=== PATIENT | female | born 1965 | race Caucasian/White ===

== ENCOUNTER 2016-06-17 22:07 | Emergency (ER) | payer SELFPAY ==
[2016-06-17 22:13] VITALS: BP 147/74
[2016-06-17 23:18] LABS: Hematocrit 48.3 % (30.3-42.9); Hemoglobin 15.2 gm/dl (10.1-14.3); Mean Corpuscular HGB Conc 32 % (30-34); Mean Corpuscular Hemoglobin 30 pg (28-32); Mean Corpuscular Volume 94 fl (79-97); Red Blood Count 5.12 M/mm3 (3.65-5.03); Red Cell Distribution Width 13.2 % (13.2-15.2); White Blood Count 14.5 K/mm3 (4.5-11.0)
[2016-06-17 23:25] LABS: Alanine Aminotransferase 24 units/L (7-56); Albumin 4.2 g/dL (3.9-5); Albumin/Globulin Ratio 1.1 %; Alkaline Phosphatase 125 units/L (35-129); Anion Gap 29 mmol/L; BUN/Creatinine Ratio 26.66; Bilirubin,Total 0.5 mg/dL (0.1-1.2); Blood Urea Nitrogen 16 mg/dL (7-17); Calcium 9.7 mg/dL (8.4-10.2); Carbon Dioxide 16 mmol/L (22-30); Chloride 93.6 mmol/L (98-107); Glucose 340 mg/dL (65-100); Lipase 30 units/L (13-60); Sodium 135 mmol/L (137-145); Total Protein 7.9 g/dL (6.3-8.2)
[2016-06-18 01:04] LABS: Basophils % (Manual) 0 % (0.0-1.8); Blastocytes % (Manual) 0 %; Eosinophils % (Manual) 0 % (0.0-4.3)
[2016-06-18 01:05] LABS: Anisocytosis 1+; Diff Status Complete; Hypochromasia 1+; Platelet Estimate Consistent w Auto
[2016-06-18 01:06] LABS: Platelet Count 192 K/mm3 (140-440)
--- NOTE | 2016-06-18 17:55 | ED Elopement Review ---
ED Pt Elopement review - Results review Lab results: Laboratory Tests 06/17/16 06/17/16 22:39 22:39 WBC 14.5 H RBC 5.12 H Hgb 15.2 H Hct 48.3 H MCV 94 MCH 30 MCHC 32 RDW 13.2 Plt Count 192 Add Manual Diff Complete Total Counted 100 Seg Neutrophils % Shipper Seg Neuts % (Manual) 61.0 Band Neutrophils % 23.0 Lymphocytes % (Manual) 6.0 L Reactive Lymphs % (Man) 0 Monocytes % (Manual) 10.0 H Eosinophils % (Manual) 0 Basophils % (Manual) 0 Metamyelocytes % 0 Myelocytes % 0 Promyelocytes % 0 Blast Cells % 0 Nucleated RBC % Not Reportable Seg Neutrophils # Man 8.8 H Band Neutrophils # 3.3 Lymphocytes # (Manual) 0.9 L Abs React Lymphs (Man) 0.0 Monocytes # (Manual) 1.5 H Eosinophils # (Manual) 0.0 Basophils # (Manual) 0.0 Metamyelocytes # 0.0 Myelocytes # 0.0 Promyelocytes # 0.0 Blast Cells # 0.0 WBC Morphology Not Reportable Hypersegmented Neuts Not Reportable Hyposegmented Neuts Not Reportable Hypogranular Neuts Not Reportable Smudge Cells Not Reportable Toxic Granulation Not Reportable Toxic Vacuolation Not Reportable Dohle Bodies Not Reportable Pelger-Huet Anomaly Not Reportable Gordy Rods Not Reportable Platelet Estimate Consistent w auto Clumped Platelets Not Reportable Plt Clumps, EDTA Not Reportable Large Platelets Not Reportable Giant Platelets Not Reportable Platelet Satelliting Not Reportable Plt Morphology Comment Not Reportable RBC Morphology Not Reportable Dimorphic RBCs Not Reportable Polychromasia Not Reportable Hypochromasia 1+ Poikilocytosis Not Reportable Anisocytosis 1+ Microcytosis Not Reportable Macrocytosis Not Reportable Spherocytes Not Reportable Pappenheimer Bodies Not Reportable Sickle Cells Not Reportable Target Cells Not Reportable Tear Drop Cells Not Reportable Ovalocytes Not Reportable Helmet Cells Not Reportable Ortiz-Leeper Bodies Not Reportable Floyd Rings Not Reportable [place] Cells Not Reportable Bite Cells Not Reportable Crenated Cell Not Reportable Elliptocytes Not Reportable Acanthocytes (Spur) Not Reportable Rouleaux Not Reportable Hemoglobin C Crystals Not Reportable Schistocytes Not Reportable Malaria parasites Not Reportable Justin Bodies Not Reportable Hem Pathologist Commnt No Sodium 135 L Potassium 4.0 Chloride 93.6 L Carbon Dioxide 16 L Anion Gap 29 BUN 16 Creatinine 0.6 L Estimated GFR > 60 BUN/Creatinine Ratio 26.66 Glucose 340 H Calcium 9.7 Total Bilirubin 0.5 AST 18 ALT 24 Alkaline Phosphatase 125 Total Protein 7.9 Albumin 4.2 Albumin/Globulin Ratio 1.1 Lipase 30 - Call Back decision Pt Call Back Decision: No action required
== END 2016-06-17 23:45 | disposition left against medical advice (07) ==
LOC: ED 22:07
DX: R11.2 Nausea with vomiting, unspecified (principal); Z53.21 Procedure and treatment not carried out due to patient leaving prior to being seen by health care provider
CPT/HCPCS: 36415; 80053; 83690; 85007; 85025